=== PATIENT | male | born 1955 | race Caucasian/White ===

== ENCOUNTER → 2018-11-03 | Outpatient (CLI) | payer BC ==
[~2018-11-03] MED LIST: ASPIRIN 81M81 MG/TA2 PO; CIPRO 500MG TA500 MG; EPA FISH OIL1 SGL PO; FLOMAX 0.40.4 MG/CAP; NIACIN250 M2 PO; PERCOCET 325 MG1 TA2
== END ==
LOC: COL.VAS 15:15
DX: I82.442 Acute embolism and thrombosis of left tibial vein (principal); I82.812 Embolism and thrombosis of superficial veins of left lower extremity; I83.92 Asymptomatic varicose veins of left lower extremity